=== PATIENT | male | born 1990 | race Two or more races ===

== ENCOUNTER 2025-03-20 10:14 | Emergency (ER) | payer OTHER ==
[~2025-03-20] VITALS: Ht 180.3 cm; Wt 100.0 kg
[2025-03-20 10:17] VITALS: O2SAT 98
[2025-03-20 11:19] LABS: BASOPHILS % 0.3 % (0.0-2.0); EOSINOPHILS % 1.5 % (0.0-5.0); HEMATOCRIT. 38.7 % (42.0-52.0); HEMOGLOBIN. 13.6 g/dL (14.0-18.0); LYMPHOCYTES % 20.7 % (20.0-50.0); MEAN PLATELET VOLUME 9.1 fl (7.4-10.4); MONOCYTES % 6.9 % (2.0-8.0); NEUTROPHILS % 70.6 % (40.0-76.0); PLATELET 207 x1000/uL (130-400); RED BLOOD CELL COUNT 4.16 mill/uL (4.7-6.1); RED CELL DISTRIBUTION WIDTH 12.6 % (11.6-14.6)
[2025-03-20 11:38] LABS: CREATININE 1.1 mg/dL (0.6-1.3)
[2025-03-20 11:39] LABS: UREA NITROGEN BLOOD 13 mg/dL (9-23)
[2025-03-20 11:40] LABS: ASPARTATE AMINOTRANSFERASE 21 IU/L (<34); TROPONIN I HIGH SENSITIVITY < 4 ng/L (3.0-53)
[2025-03-20 11:41] LABS: BILIRUBIN DIRECT 0.1 mg/dL (<=3.0); BILIRUBIN TOTAL 0.4 mg/dL (0.1-1.0); PROTEIN TOTAL 6.8 g/dL (6.0-8.3)
[2025-03-20 12:25] VITALS: BP 125/66; PULSE 70; RESP 15; TEMP 36.8; O2SAT 98
== END 2025-03-20 12:40 | disposition home or self-care (01) ==
LOC: ER 10:14
DX: R07.89 Other chest pain (principal); I48.91 Unspecified atrial fibrillation; F41.9 Anxiety disorder, unspecified
CPT/HCPCS: 36415; 71045; 80048; 80076; 83880; 84484; 85025; 85379; 93005; 99285